=== PATIENT | male | born 1985 | race Caucasian/White ===

== ENCOUNTER → 2016-09-20 | Outpatient (CLI) | payer MEDICAID ==
[~2016-09-20] MED LIST: RT-ALBUTEROL SULF 2.5 MG/3 ML PRE-MIX VIAL IH ONE
--- NOTE | 2016-09-20 09:30 | Diagnostic Imaging Report ---
PA and lateral views of the chest Indication: Dyspnea Findings: The lungs are clear. The heart size is normal. There is no effusion or pneumothorax The mediastinum and yonny appear unremarkable. Impression: Unremarkable study. Dictated by: Dictated on workstation # [id number]
== END ==
LOC: RT 08:26
PROVIDERS: ATTEND Nurse Practitioner Family
DX: R06.00 Dyspnea, unspecified (principal); J40 Bronchitis, not specified as acute or chronic; F17.200 Nicotine dependence, unspecified, uncomplicated
CPT/HCPCS: 71020; 94060; 94640; 94726; 94729

== ENCOUNTER 2016-09-27 13:00 | Outpatient (CLI) | payer MEDICAID | END 2016-09-27 13:10 | disposition home or self-care (01) | LOC: SLEEP 13:00 | PROVIDERS: ATTEND Nurse Practitioner Family | DX: G47.33 Obstructive sleep apnea (adult) (pediatric) (principal) ==